=== PATIENT | female | born 1995 | race Caucasian/White ===

== ENCOUNTER 2016-05-02 17:51 | Emergency (ER) ==
[2016-05-02 18:38] LABS: URINE SOURCE CLEAN CATCH
[2016-05-02 18:50] LABS: BILIRUBIN URINE NEGATIVE (NEGATIVE); BLOOD URINE NEGATIVE (NEGATIVE); CLARITY CLEAR (CLEAR); COLOR YELLOW; GLUCOSE URINE NEGATIVE (NEGATIVE); LEUKOCYTES URINE TRACE (NEGATIVE); NITRITE URINE NEGATIVE (NEGATIVE); PROTEIN URINE NEGATIVE (NEGATIVE); UROBILINOGEN URINE NORMAL
[2016-05-02 18:54] LABS: URINE CAST NONE SEEN /LPF; URINE CRYSTAL NONE SEEN /HPF; URINE CULTURE PL NEEDED? YES; URINE EPITHELIAL CELLS <10 /HPF (<10); URINE WBC <10 /HPF (<10)
--- NOTE | 2016-05-02 19:08 | PROVIDER DOCUMENTATION ---
HPI-Abdominal Pain/GI Problem - General Chief Complaint: Abdominal Pain Stated Complaint: ABDOMINAL PAIN Time Seen by Provider: 05/02/16 18:54 Source: patient Allergies/Adverse Reactions: Patient Allergies Allergy/AdvReac Type Severity Reaction Status Date / Time No Known Allergies Allergy Verified 05/02/16 18:04 Home Medications: Home Medication List Medication Instructions Recorded Confirmed Last Taken Type No Home Medications 05/02/16 05/02/16 Unknown History - History of Present Illness-ABD Nature of Presenting Problems: PT C/O LLQ ABD PAIN ONSET A FEW HOURS AGO,PT STATED SINCE I HAVE BEEN IN THE ED THE PAIN IS NOT SEVERE. Abdominal Pain Onset Location: reports: LLQ Pain Radiation: reports: no radiation Quality of Pain: reports: cramping Severity in ED: reports: mild Onset/Duration: reports: 1-3 hours ago Timing: reports: improving Activities at Onset: reports: none Exposure to sick contacts?: No Modifying Factors: improves with: palpation Associated Symptoms: reports: nausea. denies: diarrhea, vomiting Last BM: unsure Dark Stools Present?: reports: none noticed Rectal Bleeding: reports: none Rectal Pain: reports: none Bruising or Bleeding Gums?: No Similar Symptoms Previously?: No Recently seen or treated by another doctor?: No Review of Systems - Adult - REVIEW OF SYSTEMS - ADULT Constitutional: denies: chills, fever, night sweats Cardiovascular: denies: chest pain, irregular heart rate, palpitations Respiratory: denies: cough, shortness of breath, wheezing Gastrointestinal: reports: abdominal pain, nausea. denies: diarrhea, vomiting Genitourinary: denies: dysuria, flank pain, hematuria Musculoskeletal: denies: back pain, joint pain, muscle aches Integumentary: denies: hives, itching, rash All Other Systems: Reviewed and Negative Past History - Adult - PAST MEDICAL HISTORY-ADULT Review of Records: reports: Old Records Reviewed, Nursing Assessment Review - PRIOR SURGERIES/PROCEDURES Surgical/Procedure History: reports: none - PRIOR HOSPITALIZATIONS Prior Hospitalizations: reports: none - IMMUNIZATION STATUS Childhood Immunizations: See Nurse Assessment Flu Vaccine: See Nurse Assessment - FAMILY HISTORY Family History: reviewed, not pertinent - SOCIAL HISTORY Smoking: denies Substance Use: none/never Alcohol Use Frequency: never Living Situation: family Physical Exam-General - PHYSICAL EXAM-ADULT Initial Vital Signs Reviewed: Yes - CONSTITUTIONAL General Appearance: appears well, alert, no apparent distress - EYES Eyes: PERRL/EOMI, pink conjunctivae, fundi clear, no AV nicking - HEAD, EARS, NOSE, MOUTH & THROAT HENMT: normocephalic/atraumatic, moist mucous membranes, normal ENT inspection - NECK Neck: non-tender, full range of motion, supple - RESPIRATORY Respiratory: chest non-tender, lungs clear, normal breath sounds, no pleuratic chest pain, no respiratory distress, no accessory muscle use - CARDIOVASCULAR Cardiovascular: normal peripheral pulses, regular rate, rhythm, no edema, no gallop, no JVD, no murmur - GASTROINTESTINAL (ABDOMEN) Abdominal Exam: normal bowel sounds, soft, no organomegaly, no pulsatile mass - MUSCULOSKELETAL Back Exam: normal inspection, no CVA tenderness, no vertebral tenderness Extremity: normal range of motion, non-tender, normal gait, normal inspection, no pedal edema - SKIN Integumentary: normal color, normal turgor, warm/dry - PSYCHIATRIC Psych/Mental Status: normal mood/affect, normal thought content, normal thought process, oriented x 3 Progress - PLAN OF CARE/RESULTS Progress/Plan/Lab Results: Laboratory Results - last 24 hr 05/02/16 05/02/16 05/02/16 18:14 19:10 19:10 WBC 14.17 H RBC 5.14 Hgb 14.4 Hct 42.7 MCV 83.1 MCH 28.0 MCHC 33.7 RDW Std Deviation 13.3 Plt Count 233 MPV 9.6 Immature Gran % (Auto) 0.2 Neut % (Auto) 80.8 H Lymph % (Auto) 12.1 L [place] % (Auto) 6.3 Eos % (Auto) 0.4 Baso % (Auto) 0.2 Immature Gran # (Auto) 0.03 Neut # (Auto) 11.44 H Lymph # (Auto) 1.72 [place] # (Auto) 0.89 H Eos # (Auto) 0.06 Baso # (Auto) 0.03 Sodium 135 L Potassium 3.5 Chloride 99 Carbon Dioxide 23 L Anion Gap 13 BUN 10 Creatinine 0.8 Estimated GFR/1.73 m2 > 60 BUN/Creatinine Ratio 13 Glucose 98 Calculated Osmolality 269 Calcium 9.6 Total Bilirubin 0.50 AST 16 ALT 12 Alkaline Phosphatase 69 Total Protein 7.5 Albumin 4.7 Globulin 3.0 Albumin/Globulin Ratio 2.0 Amylase 79 Lipase 32 Urine Source CLEAN CATCH Urine Color YELLOW Urine Clarity CLEAR Urine pH 7.0 Ur Specific [place] 1.010 Urine Protein NEGATIVE Urine Ketones NEGATIVE Urine Blood NEGATIVE Urine Nitrite NEGATIVE Urine Bilirubin NEGATIVE Urine Urobilinogen NORMAL Urine Microscopic RBC Not Reportable Urine WBC TRACE A Urine Microscopic WBC <10 Ur Epithelial Cells <10 Urine Crystals NONE SEEN Urine Bacteria NEGATIVE Urine Casts NONE SEEN Urine Yeast NONE SEEN Urine Glucose NEGATIVE Bedside Urine ED: Urine Bedside Start: 05/02/16 18:05 Freq: ORDERED Status: Active Activity Type Activity Date Activity User Co-Sign Detail Recorded Client Recorded Date Recorded By Document 05/02/16 18:15 [id number] 05/02/16 18:15 [id number] 05/02/16 18:15 Point of Care [Bedside Point of Care] -Lot # [id number] - Results Negative -Control Line Visible? Yes - CT/MRI 1 CT Study: Abdomen CT Results: RIGHT OVARIAN CYST Departure - Departure Time of Disposition Order: 22:34 DIAGNOSIS: Right ovarian cyst Disposition: HOME 01 Certified Medical Emergency: Emergent Condition: Good Additional Instructions: ED Follow Up Instructions: You have been treated by a care provider in the Emergency Department. These instructions are being provided to you so you can have an understanding of how to care for yourself upon discharge. Upon discharge from the Emergency Department, you are responsible for making arrangements for follow-up care by a physician of your choice. Take all prescribed medications as directed. Return to the Emergency Department immediately for any new or worsening symptoms. You may call the Physician Referral phone number at [phone] to obtain a list of Physicians who are taking new patients. Attestation - Scribe Verification/Attestation Scribe:: Brent Mike Acting as Scribe for:: Torito Velarde Scribe documention review:: This chart was documented by a scribe and accurately reflects the service the provider performed and the decisions made by the provider.
[2016-05-02 19:17] LABS: MANUAL DIFF NEEDED? NO
[2016-05-02 19:19] LABS: BASO% 0.2 % (0.0-0.8); EOS# 0.06 X1000 (0.0-0.7); EOS% 0.4 % (0.0-10.0); HEMATOCRIT 42.7 % (37.0-47.0); HEMOGLOBIN 14.4 g/dL (12.0-16.0); IMM GRAN# 0.03 X1000 (0.0-0.04); IMM GRAN% 0.2 % (0.0-0.5); LYMPH# 1.72 X1000 (1.2-3.4); LYMPH% 12.1 % (20.5-51.1); MCHC 33.7 g/dL (33-37); MCV 83.1 FL (81-99); MONO# 0.89 X1000 (0.11-0.59); MONO% 6.3 % (1.7-9.3); MPV 9.6 FL (7.4-10.4); NEUT% 80.8 % (42.2-75.2); PLT 233 X1000 (130-400); RBC 5.14 XMIL (4.2-5.4)
[2016-05-02 19:41] LABS: AGAP 13; ALBUMIN 4.7 g/dL (3.5-5.0); ALKALINE PHOSPHATASE 69 U/L (32-104); AMYLASE 79 U/L (20-200); BUN 10 mg/dL (8-22); CALCIUM 9.6 mg/dL (8.8-10.2); CHLORIDE 99 mmol/L (98-107); COSMO 269; GOT 16 U/L (10-30); GPT 12 U/L (10-36); LIPASE 32 U/L (13-60); POTASSIUM 3.5 mmol/L (3.5-5.1); SODIUM 135 mmol/L (136-145); TCO2 23 mmol/L (25-35); TOTAL PROTEIN 7.5 g/dL (6.3-8.3)
[2016-05-02 22:59] VITALS: BP 119/78
--- NOTE | 2016-05-03 08:02 | Diag Imaging Result Document ---
PROCEDURE NAME: KARRI ABDOMEN - 05/02/2016 ABDOMEN SINGLE-VIEW: FINDINGS: There is stool throughout the colon. The bowel loops are not dilated. No organomegaly. No foreign body. No abnormal abdominal or pelvic calcifications. IMPRESSION: Mild constipation.
--- NOTE | 2016-05-03 08:19 | Diag Imaging Result Document ---
PROCEDURE NAME: CT ABD/PELVIS W/ IV CONT ONLY - 05/02/2016 CT ABDOMEN AND PELVIS WITH INTRAVENOUS CONTRAST. DOSE REDUCTION PROTOCOL. FINDINGS: Normal spleen, pancreas, gallbladder, adrenal glands, and kidneys. No hydronephrosis. The liver is mildly prominent. No focal hepatic abnormality. Normal aorta. No bowel obstruction. No inflammation about the cecum. No abscess. The urinary bladder is only mildly distended. Normal uterus. There is free fluid within the pelvis and there are bilateral ovarian cysts. The largest measures approximately 2.5 cm on the right. IMPRESSION: 1. Free fluid in the pelvis with small bilateral ovarian cysts. 2. Borderline mildly prominent liver. 3. No bowel obstruction. No abscess. A preliminary report was given at 8:52 p.m..
== END 2016-05-02 22:59 | disposition home or self-care (01) ==
LOC: P.ED 17:51
DX: N83.201 Unspecified ovarian cyst, right side (principal); R10.32 Left lower quadrant pain; R11.0 Nausea
CPT/HCPCS: 74000; 74177; 80053; 81001; 81025; 82150; 83690; 85025; 87088